=== PATIENT | female | born 1980 | race Caucasian/White ===

== ENCOUNTER 2017-10-26 17:46 | Emergency (ER) | payer OTHER ==
[~2017-10-26] VITALS: Ht 180.3 cm; Wt 65.5 kg
[~2017-10-26 17:46] MED LIST: LORA-741 PO; NORGTAB36 PO; ONDA4TAB46 PO; OXYC5TAB PO; SUMA50TA15 PO
[2017-10-26 17:54] VITALS: TEMP 36.6; Ht 180.3 cm; Wt 65.5 kg
--- NOTE | 2017-10-26 18:23 | EMERGENCY ROOM VISIT NOTE ---
History Report prepared by Quan: Aristeo Balderrama Under the Supervision of: Dr. Ritchie Ricardo M.D. First contact with patient: 18:00 Chief Complaint: CHEST PAIN Stated Complaint: PAIN IN CHEST, JAW PAIN, LIGHTHEADED, COLD SWEATS History of Present Illness The patient is a 37 year old female who presents to the Emergency Room with complaints of persistent sharp chest pain since 1600 today. She works as an administrative assistance and states that she was stuffing envelopes when she began experiencing chest pain for about 45 minutes. She currently has a tightness feeling in her chest. She reports experiencing shortness of breath, jaw pain, cold sweats, and lightheadedness. She noted neck pain, though denied any arm pain. She reports having chest pain six months ago, though she had acid reflux. She notes her arms felt weak while she was driving to the ED. She denies any acid reflux with this episode. She denies any abdominal pain, leg pain, or swelling in her legs. She states that she is not very active. She denies any chest pain or shortness of breath with exertion. She denies any history of DM, HLD, or cardiac issues. She has family history of CAD and CHF under the age of 5555 years old. She states that she just started her job, which has brought added stress. She has a history of tubal ligation and anxiety. She states that she has brought these symptoms to her PCP's attention, though she states that it was passed off as anxiety related. Source of History: patient Onset: 1600 today Position: chest Quality: sharp Timing: other (persistent) Associated Symptoms: + neck pain, + SOB, No abdominal pain Note: Notes cold sweats, lightheadedness, and jaw pain. Denies any leg pain, leg swelling, or arm pain. Review of Systems See HPI for pertinent positives & negatives. A total of 10 systems reviewed and were otherwise negative. Past Medical & Surgical Medical Problems: (1) Knee pain (2) Normal Old medical records were reviewed. Nurse's notes were reviewed and I agree with. Family History Relation not specified for: FH: CHF (congestive heart failure) FH: heart disease Social History Smoking Status: Current Some Day Smoker Alcohol Use: occasionally Drug Use: none Marital Status: Housing Status: lives with significant other Occupation Status: employed Current/Historical Medications Scheduled PRN Lorazepam (Lorazepam), 0.5 MG PO Q8 PRN for Anxiety Sumatriptan Succinate (Imitrex), 100 MG PO UD PRN for Migraine Valacyclovir Hcl (Valtrex), 1 GM PO BID PRN for UNDECIDED Allergies Coded Allergies: Ibuprofen (Verified Adverse Reaction, Mild, STOMACH PAIN, 10/30/15) Per KIEL Miramontes -- patient denies facial numbness associated with ibuprofen. Reaction to IBU was stomach pain after taking large doses in the past. [facility] Physical Exam Vital Signs Date Time Temp Pulse Resp B/P (MAP) Pulse Ox O2 Delivery O2 Flow Rate FiO2 10/26/17 20:45 63 18 103/66 99 Room Air 10/26/17 18:54 64 20 116/70 100 Room Air 10/26/17 18:08 75 10/26/17 17:54 36.6 67 18 131/73 99 Room Air Physical Exam General: Non-ill appearing slender female in no acute distress. HEENT: Normal cephalic atraumatic. Pupils are equal round and reactive to light. Extraocular movements are intact. Oropharynx is pink with moist mucous membranes. No swelling of the mouth lips or tongue. Neck: Supple with a midline trachea. No meningeal signs or stiffness, no JVD or bruits. No Stridor. Chest: Clear to auscultation bilaterally. No wheezes or rhonchi. No increased work of breathing. Heart: regular rate and rhythm. Abdomen: Soft nontender, nondistended without rebound guarding or rigidity. Extremities: No cyanosis clubbing or edema. No calf tenderness or assymetry Spine/Back. Non tender to palpation. No CVA tenderness Skin: Good turgor without rashes. Neurologic exam: Cranial nerves two through 12 are intact. Motor and sensation are intact and symmetrical throughout. Medical Decision & Procedures ER Provider Diagnostic Interpretation: Radiology results as stated below per my review and radiologist interpretation: SINGLE VIEW CHEST CLINICAL HISTORY: Atypical chest pain. FINDINGS: An AP, portable, upright chest radiograph is compared to study dated 03/21/2013. The cardiomediastinal silhouette is unremarkable. The lungs and pleural spaces are clear. No pneumothorax is seen. The bony thorax is grossly intact. IMPRESSION: No active disease in the chest. Electronically signed by: Vladislav Muniz M.D. 10/26/2017 6:52 PM Dictated Date/Time: 10/26/2017 6:52 PM Laboratory Results 10/26/17 18:30 Red Blood Count 3.88, Mean Corpuscular Volume 96.6, Mean Corpuscular Hemoglobin 33.0, Mean Corpuscular Hemoglobin Concent 34.1, Mean Platelet Volume 9.5, Neutrophils (%) (Auto) 48.4, Lymphocytes (%) (Auto) 41.7, Monocytes (%) (Auto) 6.7, Eosinophils (%) (Auto) 2.4, Basophils (%) (Auto) 0.7, Neutrophils # (Auto) 4.04, Lymphocytes # (Auto) 3.48, Monocytes # (Auto) 0.56, Eosinophils # (Auto) 0.20, Basophils # (Auto) 0.06 10/26/17 18:30 Test 10/26/17 18:30 10/26/17 20:03 White Blood Count 8.35 K/uL (4.8-10.8) Red Blood Count 3.88 M/uL (4.2-5.4) Hemoglobin 12.8 g/dL (12.0-16.0) Hematocrit 37.5 % (37-47) Mean Corpuscular Volume 96.6 fL (80-100) Mean Corpuscular Hemoglobin 33.0 pg (25-34) Mean Corpuscular Hemoglobin Concent 34.1 g/dl (32-36) Platelet Count 274 K/uL (130-400) Mean Platelet Volume 9.5 fL (7.4-10.4) Neutrophils (%) (Auto) 48.4 % Lymphocytes (%) (Auto) 41.7 % Monocytes (%) (Auto) 6.7 % Eosinophils (%) (Auto) 2.4 % Basophils (%) (Auto) 0.7 % Neutrophils # (Auto) 4.04 K/uL (1.4-6.5) Lymphocytes # (Auto) 3.48 K/uL (1.2-3.4) Monocytes # (Auto) 0.56 K/uL (0.11-0.59) Eosinophils # (Auto) 0.20 K/uL (0-0.5) Basophils # (Auto) 0.06 K/uL (0-0.2) RDW Standard Deviation 44.0 fL (36.4-46.3) RDW Coefficient of Variation 12.6 % (11.5-14.5) Immature Granulocyte % (Auto) 0.1 % Immature Granulocyte # (Auto) 0.01 K/uL (0.00-0.02) D-Dimer < 190 ug/L FEU (0-500) Anion Gap 5.0 mmol/L (3-11) Est Creatinine Clear Calc Drug Dose 114.9 ml/min Estimated GFR () 129.2 Estimated GFR (Non- 111.5 BUN/Creatinine Ratio 22.0 (10-20) Calcium Level 8.9 mg/dl (8.5-10.1) Total Bilirubin 0.6 mg/dl (0.2-1) Direct Bilirubin 0.2 mg/dl (0-0.2) Aspartate Amino Transf (AST/SGOT) 13 U/L (15-37) Alanine Aminotransferase (ALT/SGPT) 22 U/L (12-78) Alkaline Phosphatase 56 U/L (45-117) Total Protein 7.4 gm/dl (6.4-8.2) Albumin 4.2 gm/dl (3.4-5.0) Lipase 99 U/L (73-393) Human Chorionic Gonadotropin, Qual NEG (NEG) Bedside Troponin I < 0.030 ng/ml (0-0.045) Laboratory studies as stated above per my review. ECG Per My Interpretation Indication: chest pain Rate (beats per minute): 71 Rhythm: normal sinus Findings: RBBB (incomplete), no acute ischemic change Comparison ECG Date: RBBB new compared to 03/21/2013 Change: Repeat ECG: Sinus Bradycardia Findings: incomplete RBBB, no ectopy. No change from previous today. ED Course 1801: Past medical records reviewed. The patient was evaluated in room A10, and a complete history and physical examination were performed. 1851: I reassessed the patient at this time. She is resting comfortably. 1922: I reassessed the patient at this time. She is doing well. 2033: I reassessed the patient at this time. She is feeling better and resting comfortably. I discussed the results and treatment plan with the patient. I answered all pertaining questions that she had. She expressed understanding and verbalized agreement. The patient will be discharged home. Medical Decision Differentials include, but are not limited to: ACS, arrhythmia, PE, PNX, musculoskeletal, GI, and anxiety This patient comes in as described above. she had episode of chest pain but now feels better she has similar episode about 6 months ago. Her symptoms are atypical for cardiac disease and she has minimal cardiac risk factors. She had an EKG which shows no acute ischemic changes or ectopy. She has second EKG done about 90 minutes later which also shows no ischemic changes and no change compared to #1. Her troponin was 0 and a follow-up troponin 90 minutes was also 0. Her d-dimer is within normal limits and in a low pretest probability setting makes PE highly unlikely. She is not . She has no acute electrolyte or metabolic abnormalities. This may be related to anxiety or GI symptoms. She does have history of anxiety. She does feel up to going home and I do think this is reasonable with close follow-up with her regular doctor. She should return if: Increasing pain, worsening of symptoms, any new problems or concerns. She is happy the plan and discharged to home. Medication Reconcilliation Current Medication List: was personally reviewed by me Blood Pressure Screening Patient's blood pressure: Elevated blood pressure Blood pressure disposition: Elevated BP felt to be situational Impression Primary Impression: Substernal precordial chest pain Scribe Attestation The scribe's documentation has been prepared under my direction and personally reviewed by me in its entirety. I confirm that the note above accurately reflects all work, treatment, procedures, and medical decision making performed by me. Departure Information Dispostion Home / Self-Care Referrals Hung Mcdaniel M.D. (PCP) Forms Call Back Authorization, HOME CARE DOCUMENTATION FORM, IMPORTANT VISIT INFORMATION Patient Instructions My [facility] [employer] Additional Instructions Rest. Drink plenty of fluids. Return if: Increasing pain, worsening of symptoms, shortness of breath, any new problems or concerns Follow-up with your doctor in 1-2 days for recheck
[2017-10-26] MEDS ORDERED: IMT100 PO (18:28)
[2017-10-26] MEDS ORDERED: VALA1TAB31 PO (18:28)
[2017-10-26] MEDS ORDERED: ATV5X PO (18:28)
[2017-10-26 18:51] LABS: BASO % 0.7 %; BASO ABS # 0.06 K/uL (0-0.2); EOS % 2.4 %; HEMATOCRIT 37.5 % (37-47); HEMOGLOBIN 12.8 g/dL (12.0-16.0); IG# 0.01 K/uL (0.00-0.02); LYMPH % 41.7 %; LYMPH ABS # 3.48 K/uL (1.2-3.4); MEAN CELL VOLUME 96.6 fL (80-100); MEAN CORPUSCULAR HGB CONC 34.1 g/dl (32-36); MEAN PLATELET VOLUME 9.5 fL (7.4-10.4); MONO % 6.7 %; MONO ABS # 0.56 K/uL (0.11-0.59); NEUT % 48.4 %; NEUT ABS # 4.04 K/uL (1.4-6.5); PLATELET COUNT 274 K/uL (130-400); RED CELL DISTRIBUTION WIDTH CV 12.6 % (11.5-14.5); WHITE BLOOD COUNT 8.35 K/uL (4.8-10.8)
--- NOTE | 2017-10-26 18:54 | DIAGNOSTIC IMAGING REPORT ---
SINGLE VIEW CHEST CLINICAL HISTORY: Atypical chest pain. FINDINGS: An AP, portable, upright chest radiograph is compared to study dated 03/21/2013. The cardiomediastinal silhouette is unremarkable. The lungs and pleural spaces are clear. No pneumothorax is seen. The bony thorax is grossly intact. IMPRESSION: No active disease in the chest. Electronically signed by: Vladislav Muniz M.D. 10/26/2017 6:52 PM Dictated Date/Time: 10/26/2017 6:52 PM
[2017-10-26 19:12] LABS: ALBUMIN 4.2 gm/dl (3.4-5.0); CALCIUM 8.9 mg/dl (8.5-10.1); CREATININE 0.7 mg/dl (0.60-1.20); POTASSIUM 3.7 mmol/L (3.5-5.1)
[2017-10-26 19:15] LABS: TOTAL PROTEIN 7.4 gm/dl (6.4-8.2)
[2017-10-26 20:45] VITALS: BP 103/66; PULSE 63; O2SAT 99
== END 2017-10-26 20:46 | disposition home or self-care (01) ==
LOC: C.EDB 17:49 → C.EDA 20:46
DX: R07.2 Precordial pain (principal); R42 Dizziness and giddiness; R68.84 Jaw pain; F17.210 Nicotine dependence, cigarettes, uncomplicated